=== PATIENT | female | born 1975 | race Caucasian/White ===

== ENCOUNTER 2016-02-23 05:05 | Day surgery (SDC) | payer MEDICAID ==
[2016-02-20 11:47] LABS: BASOPHILS 0.2 % (0.0-2.0); EOSINOPHILS 1.4 % (0-7); HEMATOCRIT 38.6 % (36.0-48.0); HEMOGLOBIN 12.8 g/dL (12-16); IMMATURE GRANULOCYTES 0.2 % (0-5); LYMPHOCYTES 23.9 % (15-50); MCHC 33.2 g/dL (31.0-37.0); MCV 90.6 fL (80.0-100.0); MEAN PLATELET VOLUME 10.1 fL (7.4-10.4); MONOCYTES 4.8 % (2-11); NEUTROPHILS 69.5 % (40-80); RBC 4.26 10x6/uL (4.00-5.40); RDW 13.6 % (11.5-14.5); WBC 8.5 10x3/uL (4.8-10.8)
[2016-02-20 11:49] LABS: PLATELET COUNT 260 10x3/uL (130-400)
[~2016-02-23] VITALS: Ht 156.2 cm; Wt 102.5 kg
[~2016-02-23 05:05] MED LIST: EZFE 200200 MG; IBUPROFEN600 MG PO; PERCOCET 5-3251 TAB PO; PRILOSEC20 MG PO; [UNRECOGNIZED DRUG - OTHER] PO
[2016-02-23] MEDS ORDERED: ACETAMINOPHEN325 MG PO (06:23)
[2016-02-23] MEDS ORDERED: ZANTAC150 MG PO (06:23)
[2016-02-23 06:41] LABS: HCG URINE NEGATIVE (NEGATIVE)
[2016-02-23 06:44] VITALS: BP 100/59; Ht 156.2 cm; Wt 102.5 kg
--- NOTE | 2016-02-23 09:09 | NUR ---
DR CORNEJO IN ROOM TO ASSIST DR JAMA
--- NOTE | 2016-02-23 09:29 | NUR ---
UNABLE TO REACH FAMILY FOR UPDATE
--- NOTE | 2016-02-23 12:36 | OP ---
PATIENT NAME: ALFRED NATH MEDICAL RECORD: [id number] :77 LOCATION:D.OPS ADMISSION DATE: SURGEON: ESTER CORNEJO MD DATE OF OPERATION: 02/23/2016 SURGEON: Ester Cornejo MD This is an intraoperative consultation from Dr. Norman. Dr. Norman was performing a laparoscopic tubal ligation. The patient had significant intra-abdominal adhesions, what appears to be a prior low midline incision, likely Pfannenstiel that was obstructing her view of the pelvis and inhibiting her from performing a laparoscopic tubal ligation. With the three 5-mm trocar that was already in place, laparoscopic lysis of adhesion was performed with the Harmonic scalpel, taking down significant amount of adhesions of the greater omentum to the lower pelvic incision. The full dissection was completed with the Harmonic scalpel. Careful attention was paid to hemostasis. There was no bleeding in the anterior abdominal wall. With the greater omentum down, it was fully mobilized, it was retracted to the undersurface of the omentum and the anterior surface ____ there was no evidence of bleeding. TRANSINT:[id number] Voice Confirmation ID: [id number] DOCUMENT ID: [id number] ESTER CORNEJO MD at 1236 CC: [id number] DICTATION DATE: 02/23/1642 MANAGER NURSING: 02/23/16 0953 [facility] [address] [place] [address]
--- NOTE | 2016-02-23 13:40 | OP ---
PATIENT NAME: ALFRED NATH MEDICAL RECORD: [id number] :76 LOCATION:D.OPS ADMISSION DATE: SURGEON: RYLAN NORMAN MD DATE OF OPERATION: 02/23/2016 PREOPERATIVE DIAGNOSIS: Undesired sterility. POSTOPERATIVE DIAGNOSES: 1. Undesired sterility. 2. Severe omental adhesive disease. 3. Right ovarian cyst. SURGEON: Rylan Norman MD FINANCIAL CONSULTANT SURGEON: Viet Jose MD ANESTHESIA: General endotracheal anesthesia with Ruma Hayden CRNA. PROCEDURES: 1. Interval laparoscopic sterilization via bilateral distal salpingectomy. 2. Right ovarian cystectomy. 3. Right ovarian cyst drainage. 4. (Lysis of omental adhesions per Dr. Jose). FINDINGS: Severe omental adhesive disease of the omentum to the anterior abdominal wall obscuring pelvic visualization. Normal appearing uterus and tubes bilaterally, as well as left ovary. The right ovary with multiple simple appearing cysts measuring 1-3 cm size. DESCRIPTION OF THE PROCEDURE: After informed consent was given, the patient was taken to the operating room, where general endotracheal anesthesia was placed and found to be adequate. She was placed in a dorsal lithotomy position in [facility]. She was prepped and draped sterilely including a vaginal prep. A red rubber catheter was placed in the bladder and bladder drained with approximately 50 cc of clear urine return. A bivalve speculum was then placed in the vagina, the cervix visualized and grasped anteriorly with a single-tooth tenaculum. A Pelosi uterine manipulator was then placed with ease and the bivalve speculum removed. Gloves were changed. The patient was placed into a ski position. An infraumbilical incision was then made with the scalpel, and with elevation of the anterior abdominal wall, a 5-mm Optiview port was placed under direct visualization. No obvious injury to underlying structures was noted. The patient was placed into Trendelenburg and the pelvic structures were brought into view. Severe omental adhesions were noted of the omentum to the anterior abdominal wall with 2 distinct regions and a space between the 2. We were able to go around the adhesions somewhat for visualization of the right adnexal region. The left adnexal region was difficult to visualize due to the adhesions. A 5-mm right and left lower quadrant ports were also placed under direct visualization. We attempted to begin the salpingectomy on the right side. The right fallopian tube was gently held on traction as the J hook was used to create a defect in the mesosalpinx. The Harmonic scalpel was then used to cauterize and transect the more proximal portion of the fallopian tube. We then used the Harmonic scalpel to cauterize and transect the mesosalpinx until reaching the region of the fimbria. The fimbrial attachments were then also cauterized and transected. The right distal fallopian tube and fimbria was then removed through the 5-mm port on the right side and passed off the field as OPERATIVE REPORT [id number] ALFRED NATH specimen. Some oozing was noted from the proximal fallopian tube and the mesosalpinx regions. These were cauterized with the Gyrus and excellent hemostasis was then noted. We attempted to begin the salpingectomy on the left side, but due to these omental adhesions and how they were obscuring the visualization of structures, a general surgeon was consulted. He came into the operating room, where he performed an extensive lysis of adhesions, spending at least 20 or close to 30 minutes taking down these adhesions. Please see his dictation for further details. Once the adhesions were sufficiently taken down and the pelvic structures could be visualized readily. We continued the salpingectomy on the left side in a similar fashion holding the fallopian tube gently on traction as a defect was created in the mesosalpinx with the J-Hook We then used the Harmonic scalpel to cauterize and transect the more proximal portion of the fallopian tube, the mesosalpinx until reaching the distal fimbria attachments. These were then also cauterized and transected with the Harmonic scalpel. The left fallopian tube was removed through one of the 5-mm port and passed off the field as specimen. We then used the Gyrus to cauterize any oozing regions. Excellent hemostasis was then noted and attention was turned to the right ovary, where multiple follicles and cysts were noted measuring 1-3 cm sized. The smaller follicles were punctured and drained with the J-hook. The 3 cm ovarian cyst was punctured, drained and a cystectomy was performed removing the cyst wall and contents. These were passed off the field as specimen. The region where the ovarian cyst was was then cauterized with the Gyrus and excellent hemostasis was noted. The abdomen and pelvis were irrigated profusely and noted to be hemostatic. The ureters were identified and noted to be peristalsing normally bilaterally. The right and left lower quadrant ports were then removed under direct visualization. Hemostasis was assured. The abdomen was desufflated and the 5-mm umbilical port was removed. All 3 port sites were closed with 3-0 Monocryl in a subcuticular fashion with Dermabond, Steri-Strips, and Band-Aids applied atop. We then turned our attention down below once again; the patient was placed into a lithotomy position. The Pelosi uterine manipulator was removed. The single-tooth tenaculum was removed. The bivalve speculum was replaced. Silver nitrate was used at the tenaculum sites with excellent hemostasis noted. The patient was returned to a supine position, awakened and taken into the recovery room in stable condition. The patient tolerated procedure well. Sponge, lap, needle, and instrument counts were reported correct times 2. ESTIMATED BLOOD LOSS: Less than 50 cc. URINE OUTPUT: 50 cc. COMPLICATIONS: None. SPECIMENS: 1. Left distal fallopian tubes, fimbria. 2. Right distal fallopian tubes, fimbria. 3. Right ovarian cyst wall and contents. TRANSINT:[id number] Voice Confirmation ID: [id number] DOCUMENT ID: [id number] OPERATIVE REPORT [id number] ALFRED NATH RENEE MD at 1340 CC: [id number] DICTATION DATE: 02/23/16 1111 [employer] SYSTEMS ADMINISTRATOR: 02/23/[address] [facility] [address] [place] [id number]
== END 2016-02-23 12:50 | disposition home or self-care (01) ==
LOC: D.OPS 05:05 → D.PAN 07:30 → D.OPS 07:30
PROVIDERS: Specialist
DX: Z30.2 Encounter for sterilization (principal); N73.6 Female pelvic peritoneal adhesions (postinfective); N83.11 Corpus luteum cyst of right ovary

== ENCOUNTER 2017-12-04 18:16 | Emergency (ER) | payer MEDICAID ==
[~2017-12-04] VITALS: Ht 156.2 cm; Wt 102.7 kg
[~2017-12-04 18:16] MED LIST changes: +ACETAMINOPHEN325 MG PO; +ZANTAC150 MG PO
[2017-12-04 18:19] VITALS: Ht 156.2 cm; Wt 102.7 kg
[2017-12-04] MEDS ORDERED: TORADOL10 MG PO (21:20)
[2017-12-04] MEDS ORDERED: VALTREX1000 MG PO (21:20)
[2017-12-04 21:46] VITALS: BP 140/72
== END 2017-12-04 21:47 | disposition home or self-care (01) ==
LOC: D.ER 18:16
DX: B02.9 Zoster without complications (principal); S39.011A Strain of muscle, fascia and tendon of abdomen, initial encounter; X58.XXXA Exposure to other specified factors, initial encounter; Y93.89 Activity, other specified; Y92.019 Unspecified place in single-family (private) house as the place of occurrence of the external cause; F17.200 Nicotine dependence, unspecified, uncomplicated

== ENCOUNTER 2018-09-19 06:00 | Day surgery (SDC) | payer OTHER ==
[2018-09-18 10:07] LABS: BASOPHILS 0.2 % (0-2); EOSINOPHILS 2.2 % (0-7); HEMATOCRIT 34.8 % (36.0-48.0); HEMOGLOBIN 12.2 g/dL (12-16); IMMATURE GRANULOCYTES 0.2 % (0-5); MCH 30.6 pg (26.0-34.0); MCHC 35.1 g/dL (31.0-37.0); MCV 87.2 fL (80.0-100.0); MEAN PLATELET VOLUME 9.8 fL (7.4-10.4); MONOCYTES 7.5 % (2-11); NEUTROPHILS 55.9 % (40-80); PLATELET COUNT 221 10x3/uL (130-400); RBC 3.99 10x6/uL (4.00-5.40); RDW 13.1 % (11.5-14.5); WBC 4.9 10x3/uL (4.8-10.8)
[2018-09-18 10:21] LABS: ANION GAP 12.9 mmol/L (8-16); CALCIUM 8.8 mg/dL (8.5-10.1); CARBON DIOXIDE 25.1 mmol/L (21.0-32.0); CREATININE - SERUM 0.9 mg/dL (0.6-1.3)
[~2018-09-19] VITALS: Ht 157.5 cm; Wt 90.7 kg
[~2018-09-19 06:00] MED LIST changes: +ARTHROTEC EC 71 EACH PO; +LEXAPRO10 MG PO; +TOFRANIL50 MG; +TORADOL10 MG PO; +VALTREX1000 MG PO
[2018-09-19 06:25] VITALS: BP 144/92; Ht 157.5 cm; Wt 90.7 kg
[2018-09-19] MEDS ORDERED: HYDROCODON-ACE1 EA10 PO (08:55)
--- NOTE | 2018-09-19 12:41 | NUR ---
1010 RANKS BACK PAIN 09/16. STATES HEADACHE IS BETTTER NOW AFTER EATING & DRINKING. 1 NORCO 10/325MG PO FOR PAIN. Castillo POLLACK R.N.
--- NOTE | 2018-09-19 12:46 | NUR ---
1120 IV DC'ED WITH CATH INTACT. GLENDA. Castillo POLLACK R.N.
--- NOTE | 2018-09-19 13:28 | NUR ---
1145 DRESSED, AWAKE & ALERT. SMALL HEMATOMA NOTED @ IV SITE. PT GIVEN DISCHARGE INFORMATION INCLUDING: RX: NORCO 10/325MG, MED REC., RTC APPT., & MC D/C INSTRUCTIONS. PT ADVISED NO SUBMERSION OF OPERATIVE SITE. PT ASKED WHEN SHE CAN GO BACK TO WORK. DR. HUDDLESTON'S ORDER FOR NO HEAVY LIFTING OR STRAINING EMPHASIZED. PT REMINDED FOLLOW UP APPT 10/04/[address] HUDDLESTON & CAN DISCUSS WORK @ THAT TIME. PT STATES SHE HAS TO LIFT & STRAIN @ WORK. TO PRIVATE CAR PER WHEELCHAIR BY STAFF. HOME WITH MOTHER, DEEPIKA MCKEON. Castillo POLLACK R.N.
--- NOTE | 2018-10-05 07:19 | OP ---
PATIENT NAME: ALFRED NATH MEDICAL RECORD: [id number] :77 LOCATION:D.OPS ADMISSION DATE: SURGEON: CRYUS HUDDLESTON MD DATE OF OPERATION: 09/19/2018 PREOPERATIVE DIAGNOSES: 1. Right lower back mass. 2. Tobacco dependence syndrome. 3. Hypercholesterolemia. 4. Asthma. POSTOPERATIVE DIAGNOSES: 1. Lumbar hernia. 2. Tobacco dependence syndrome. 3. Hypercholesterolemia. 4. Asthma. PROCEDURE: Primary repair of right lumbar hernia. SURGEON: Cyrus Huddleston MD REPORT OF PROCEDURE: The patient was placed in left lateral decubitus position and the back was prepped and draped in sterile fashion. A transverse incision was made overlying the area of the mass. Electrocautery was used to dissect through the subcutaneous tissues and as we came through these tissues, we eventually encountered an open space lying atop the musculature overlying the fascia. As we dissected out laterally, there was a firm fatty tissue present that seemed consistent with a lipoma, but as we dissected this down, it dipped down into a small opening consistent with a lumbar hernia. We then excised this fatty tissue at its base and could see that this lumbar hernia, which was about a centimeter in size. We reapproximated the fascial tissues transversely with interrupted 0 Prolenes times 2 with good approximation of the tissue. We then irrigated out the wound thoroughly with normal saline and assured there was no sign of any bleeding. The subcutaneous tissues were reapproximated with interrupted 3-0 Vicryl and the skin was closed with running subcutaneous 5-0 Monocryl. A 10 mL of 0.25% Marcaine with epinephrine was infused into the surrounding tissues and the wound was dressed appropriately. COMPLICATIONS: None. CONDITION: Stable. ANESTHESIA: General endotracheal and local. BLOOD LOSS: Minimal. TRANSINT:[id number] Voice Confirmation ID: [id number] DOCUMENT ID: [id number] OPERATIVE REPORT [id number] PHAMALFRED CYRUS BERNSTEIN MD at 0719 CC: BASILIO GALVEZ MD [id number] DICTATION DATE: 09/19/18 0900 CHARGING CAR OPERATOR: 09/19/18 1138 [facility] 09/19/18 [place] [address]
== END 2018-09-19 11:45 | disposition home or self-care (01) ==
LOC: D.OPS 06:00 → D.PAN 08:00 → D.OPS 11:45
PROVIDERS: ATTEND Surgery
DX: K45.8 Other specified abdominal hernia without obstruction or gangrene (principal); F17.200 Nicotine dependence, unspecified, uncomplicated; E78.00 Pure hypercholesterolemia, unspecified; J45.909 Unspecified asthma, uncomplicated; Z01.812 Encounter for preprocedural laboratory examination